=== PATIENT | female | born 1945 | race Caucasian/White ===

== ENCOUNTER → 2018-03-06 14:20 | Outpatient (CLI) | payer MEDICARE, SELFPAY ==
[2018-03-06 16:02] LABS: Vitamin D,25 Hydroxy 20.9 ng/mL (29.95-100.01)
[2018-03-06 16:05] LABS: Anion Gap 6 (5-15); BUN 16 mg/dL (7-18); BUN/Creat Ratio 25.5 RATIO (10-20); Calcium,Total 9.2 mg/dL (8.5-10.1); Chloride 105 mmol/L (98-107); Cholesterol 243 mg/dL (200); Creatinine, Serum 0.63 mg/dL (0.55-1.02); EST Glomerular Filtration Rate 100 mL/min (>60); Est Glom Filt Rate - Afr Amer 120 mL/min (>60); Glucose 90 mg/dL (74-106); High Density Lipoprotein 58 mg/dL; Potassium 4.4 mmol/L (3.5-5.1); Sodium Level 141 mmol/L (136-145); Thyroid Stim Hormone (TSH) 0.84 uIU/mL (0.358-3.74); Triglycerides 87 mg/dL; Very Low Density Lipoprotein 17 mg/dL (5-40)
== END ==
PROVIDERS: Family Provider Family Medicine; PCP Family Medicine; Referring Provider Family Medicine; Visit Provider Family Medicine
DX: Z13.220 Encounter for screening for lipoid disorders (principal); Z13.1 Encounter for screening for diabetes mellitus; Z13.29 Encounter for screening for other suspected endocrine disorder; Z13.21 Encounter for screening for nutritional disorder
CPT/HCPCS: 36415; 80048; 80061; 82306; 84443

== ENCOUNTER → 2018-05-08 10:35 | Outpatient (CLI) | payer MEDICARE, SELFPAY ==
--- NOTE | 2018-05-08 10:40 | BD_ITS ---
STUDY: DUAL ENERGY X-RAY ABSORPTIOMETRY / DXA REASON FOR EXAM: Female, 73 years old. The patient is postmenopausal. Loss of height. TECHNIQUE: Bone Mineral Density (BMD) measurements of lumbar spine and bilateral hips were obtained. COMPARISON: Comparison is made with prior study dated June 27, 2011. FINDINGS: Lumbar Spine (L1-L4): g/cm2 (0.961) / T-score (-1.7) / Z-score (-0.1) Findings are suggestive of osteopenia with a moderate fracture risk. Left Femur Total: g/cm2 (0.873) / T-score (-1.1) / Z-score (0.5) Left Femoral Neck: g/cm2 (0.754) / T-score (-2.0) / Z-score (-0.3) Right Femur Total: g/cm2 (0.854) / T-score (-1.2) / Z-score (0.3) Right Femoral Neck: g/cm2 (0.737) / T-score (-2.2) / Z-score (-0.4) The T-Scores on the most recent prior examination were: Lumbar Spine (L1-L4): There has been worsening of bone density since the previous examination. Left Femur Total: which represents a worsening of 0.3%. Right Femur Total: which represents a worsening of 4.5%. BD/Dexa Bone Density Study IMPRESSION: The patient is considered osteopenic as outlined below according to World [place] Organization (WHO) criteria with a moderate fracture risk. There has been worsening of bone density since the previous examination. Reference Information: The T-score is the number of standard deviations above or below the standard which is normal for young adults at their peak bone mineral density. The World Health Organization (WHO) interprets the T-scores as follows: Above -1 Normal bone density Between -1 and -2.5 Osteopenia Equal to / or below -2.5 Osteoporosis As a practical clinical guideline, osteopenia may be graded as follows: Mild -1 through -1.5 Moderate -1.6 through -2.0 Severe -2.1 through -2.4 The Z-score is the number of standard deviations above or below age-matched controls. A Z-score of less than -1.5 would be considered abnormal. References: 1. NIH Osteoporosis and Related Bone Diseases http://www.osteo.org 2. International Society for Clinical Densitometry http://www.iscd.org 3. National Osteoporosis Foundation http://www.nof.org Electronically Signed: Delvis Lara MD at 10:41 EST , Service support ,
--- NOTE | 2018-05-08 10:40 | BI_ITS ---
MAMMOGRAPHY - BILATERAL SCREENING REASON FOR EXAM: Female, 73 years old. Routine annual screening examination. PERTINENT HISTORY: Non-contributory. Remote right excisional breast biopsy. TECHNIQUE: Digital bilateral breast maty (3D mammographic acquisition) in the CC and MLO projections. 2-D mediolateral oblique (MLO) and craniocaudad (CC) views of both breasts were obtained. CAD: Full Field Digital Mammography with Computer Added Detection was performed. COMPARISON: Comparison is made with prior study dated December 26, 2012. FINDINGS: Breast Composition: There are scattered areas of fibroglandular density. There are no dominant masses or suspicious calcifications. Stable small bilateral axillary lymph nodes. No other significant abnormalities are identified. There has been no significant change since the prior study. BI/SCREENING MAMM (CAD), BILAT IMPRESSION: Stable bilateral screening mammogram. Yearly follow-up mammogram recommended. (A) ASSESSMENT CATEGORY: BIRADS Category 2: Benign. A letter regarding these results will be sent to the patient by the facility within 30 days. Approximately 10% of breast cancers are not detected by mammography. A normal mammogram should not delay biopsy of a clinically suspicious abnormality. [id number] Electronically Signed: Delvis Lara MD at 14:00 EST , Service support ,
== END ==
PROVIDERS: Family Provider Family Medicine; PCP Family Medicine; Referring Provider Family Medicine; Visit Provider Family Medicine
DX: Z12.31 Encounter for screening mammogram for malignant neoplasm of breast (principal); Z78.0 Asymptomatic menopausal state
CPT/HCPCS: 77063; 77067; 77080

== ENCOUNTER → 2019-09-03 | Outpatient (CLI) | payer MEDICARE, SELFPAY | END | disposition home or self-care (01) | PROVIDERS: PCP Family Medicine; Referring Provider Family Medicine; Visit Provider Family Medicine | DX: L03.90 Cellulitis, unspecified (principal) | CPT/HCPCS: 87070; 87106; 87186; 87205 ==

== ENCOUNTER 2019-12-01 06:51 | Day surgery (SDC) | payer MEDICARE, SELFPAY ==
[2019-12-01] VITALS (8 sets, daily range): BP systolic 131–165; BP diastolic 89–118; PULSE 68–76; RESP 16; TEMP 36.8–37.1; O2SAT 97–98; BMI 27.7
[2019-12-01] MEDS: Lactated Ringers 1,000 ML 100 ML IV (07:42)
--- NOTE | 2019-12-01 07:47 | H&P.OPEN ---
History of Present Illness Date of Admission: 12/01/19 The patient is a 74 year old F here for screening colonoscopy. Her last colonoscopy was about 10 years ago it may have been more. It was normal. She is not having any blood in her stool. She says occasionally she gets episodes where she has abdominal cramping and vomiting. She will see me in the office to discuss this at a later date. She has no family history of colon cancer that she knows of. Past Medical/Surgical History - Planned Operation Planned Operative Procedure/s: COLONOSCOPY Date of Operative Procedure: 12/01/19 Permit Signed: Yes S.O.S: No Is This Patient Having a Total Joint: No - Previous Hospitalizations/Surgeries HX Hospitalizations: No HX of Surgeries: TUBAL. BREAST LUMPECTOMY. LUMP OFF OF LEG. TOOTH EXTRACTION Any Problems With Anesthesia: No You/Your Family Experience Fever (Hyperthermia) With Anes: No Cholinesterase deficiency: No - Cardiovascular Hx Chest Pain within Last 2 months: No Hx of Irregular Heartbeat and/or Afib: No Hx Heart Attack: No Hx Congestive Heart Failure: No Hx Rheumatic Fever: No Hx Hypertension: Yes - ON MED Hx Internal Defibrillator: No Hx Pacemaker: No Hx Cardiac Catheterization: No Hx Cardiac Surgery/Stents/Etc.: No Hx Stress Test: No HX Edema: Yes - LOWER EXTREM. Hx Pain in Legs when Walking/Leg Cramps: No - Respiratory Chronic Cough: No HX of Shortness of Breath: No Hoarseness: No Hx Chronic Obstructive Pulmonary Disease (COPD): No Hx Asthma: No Hx Emphysema: No Hx Sleep Apnea: Yes CPAP: Yes - [id number] HAS SINCE GOTTEN RID OF BIPAP: No Hx Oxygen Use at Home: No Hx Respiratory Tract Infection/Cold (presently): No Result (for STOP score): Positive Hx Smoking: No Smoking Status: Never smoker - Gastrointestinal Hx Gastroesophageal Reflux: No Hx Gastrointestinal Disorders: No Hx Gastrointestinal Bleed: No Hx Ulcer: No Hx Hiatal Hernia: No Difficulty Chewing/Swallowing: No Recent Onset of Swallowing Problems: No Special diet followed at home: No Hx Unplanned Weight Loss of 20#: No HX Unplanned Weight Gain of 20#: No - Neurological Hx Seizures: No HX Syncope/Blackout Spells/Unconsciousness: No Hx CVA/Stroke: No Hx Transient Ischemic Attacks (TIA): No Hx Multiple Sclerosis: No Hx Parkinson's Disease: No Hx Head/Neck Injury: No Hx Headaches: No Hx Back Injury/Pain: Yes Recent Onset of Speech Difficulty: No Restless Legs: No Does patient have nerve stimulator: No - Blood Disorder Hx Leukemia: No Bleeding Tendencies: No Hx Deep Vein Thrombosis: No Hx High Cholesterol: Yes Blood Transmitted Disease: No Hx Hepatitis: No Hx Cirrhosis: No Hx Anemia: No Hx Blood Disorders: No - Reproduction : No Is Patient Lactating: No Hx Hysterectomy: No Hx Tubal Ligation: Yes Are You Post Menopause: Yes - Genitourinary Hx Renal Disease: No - Musculoskeletal Hx Arthritis: Yes Hx Rheumatoid Arthritis: No Hx Gout: No Recent Onset of an Orthopedic Problem: No - Endocrine Hx Diabetes: No Thyroid Disease: No Hx Steroid Therapy: No - Psycho/Social Hx Substance Use: No Hx Alcohol Use: No Hx Anxiety: No Hx Depression: No Mental Illness: No Hx Dementia: No - Miscellaneous Hx Cancer: No Recent Exposure to Contagious Disease: No Active MRSA: No Hx of C-Diff: No Any Loose Teeth: No Allergies Penicillins [PCN] Allergy (Verified 12/01/19 07:22) Swelling - Discharge Is Pt Admitted From a Jail, or a Mcfp: No Who Could Help: FAMILY After D/C, Where Do you Plan to Go: Return Home - From the PAT History Number of Risk Factors: 1 - Physical Exam Vitals/I&O's: Vital Signs Temp Pulse Resp BP Pulse Ox 98.8 F 76 16 165/100 H 98 12/01/19 07:26 12/01/19 07:26 12/01/19 07:26 12/01/19 07:26 12/01/19 07:26 Oxygen Delivery Method Room Air Weight: 137 lb 5.568 oz Body Mass Index (BMI) 27.7 General: Alert, Oriented x3 Neck: No JVD Lungs: Normal air movement Cardiovascular: Regular rate, Regular Rhythm Abdomen: Soft, Non Tender, Non-Distended Current Medications Lactated Ringer's () 1,000 mls @ 100 mls/hr IV .Q10H [place] Last Admin: 12/01/19 07:42 Dose: 100 mls/hr Documented by: Assessment/Plan 74-year-old female here for screening colonoscopy 1. I explained endoscopy in detail to the patient. I explained the risks including but not limited to stroke or heart attack with anesthesia, perforation of the GI tract, bleeding, infection. I explained that any of these could necessitate further emergency surgery. The patient understands and all questions were answered sufficiently. The patient wishes to proceed with procedure. 2. We discussed the current risks associated with COVID-19. While it is understood that there is a community spread of COVID-19, the risk of uriel COVID-19 [address] at [facility] ([facility]) is very low; however, the risk cannot be completely mitigated because of the community spread of the disease. We discussed in detail the risk of exposure to and/or potential harm posed by the COVID-19 virus with having a surgery/procedure at this time versus the risk of delaying the surgery/procedure. It is not possible to know either the risk of delaying the surgery or procedure or chance of getting an infection with perfect accuracy, but a joint decision was made to proceed at this time with the scheduled surgery/procedure as indicated on the consent form. Patient was notified that we will need to comply with any screening or testing [facility] wishes to perform or that surgery may be delayed for any positive results. Teo Ruiz MD Pager: [facility] [address] [place] [address], [address] [place] [address] Office: Surgery Risks - Colonoscopy Risks Include but are not Limited To: Risks include but are not limited to: Bleeding, perforation requiring further surgery, inability to complete colonoscopy requiring barium enema.
--- NOTE | 2019-12-01 08:10 | OP.COLON_ITS ---
Patient Name: Veronique Tobar Procedure Date: 12/01/2019 7:36 AM Date of : 1945 Age: 74 Procedure: Colonoscopy Indications: Screening for colorectal malignant neoplasm Providers: Teo Ruiz MD Referring MD: Danie Hitchcock Medicines: Monitored Anesthesia Care Patient Profile: This is a 74 year old female. Refer to note in patient chart for documentation of history and physical. Last Colonoscopy: 10 years ago. Complications: No immediate complications. Procedure: Pre-Anesthesia Assessment: - Prior to the procedure, a History and Physical was performed, and patient medications and allergies were reviewed. The patient's tolerance of previous anesthesia was also reviewed. The risks and benefits of the procedure and the sedation options and risks were discussed with the patient. All questions were answered, and informed consent was obtained. Prior Anticoagulants: The patient has taken no previous anticoagulant or antiplatelet agents. After reviewing the risks and benefits, the patient was deemed in satisfactory condition to undergo the procedure. After I obtained informed consent, the scope was passed under direct vision. Throughout the procedure, the patient's blood pressure, pulse, and oxygen saturations were monitored continuously. The colonoscope was introduced through the anus and advanced to the cecum, identified by appendiceal orifice and ileocecal valve. The colonoscopy was performed without difficulty. The patient tolerated the procedure well. The quality of the bowel preparation was good. Scope In: 7:55:03 AM Scope Withdrawal Time 0 hours 6 minutes 4 seconds Scope Out: 8:06:36 AM Total Procedure Duration Time 0 hours 11 minutes 33 seconds Findings: The entire examined colon appeared normal on direct and retroflexion views. Impression: - The entire examined colon is normal on direct and retroflexion views. - No specimens collected. Recommendation: - Discharge patient to home. - Resume previous diet. - Continue present medications. - Repeat colonoscopy is not recommended due to current age (66 years or older) for screening purposes. Procedure Code(s): --- Professional --- 56458, Colonoscopy, flexible; diagnostic, including collection of specimen(s) by brushing or washing, when performed (separate procedure) Diagnosis Code(s): --- Professional --- Z12.11, Encounter for screening for malignant neoplasm of colon CPT copyright 2017 [employer]. All rights reserved. The codes documented in this report are preliminary and upon dry chain offbearer review may be revised to meet current compliance requirements. Teo Ruiz MD 12/01/2019 8:09:57 AM This report has been signed electronically. Number of Addenda: 0 Note Initiated On: 12/01/2019 7:36 AM
--- NOTE | 2019-12-01 08:10 | OP.CCLET_ITS ---
12/01/2019 Danie Hitchcock [address] [place] [address] Re : Colonoscopy procedure for Veronique Tobar Dear Dr. Hitchcock This procedure was performed on Sunday, December 01, 2019. My impressions and recommendations are as follows: Impressions : - The entire examined colon is normal on direct and retroflexion views. - No specimens collected. Recommendations : - Discharge patient to home. - Resume previous diet. - Continue present medications. - Repeat colonoscopy is not recommended due to current age (66 years or older) for screening purposes. My findings are described in the full procedure note, which is enclosed. If I can be of further assistance, please feel free to contact me at Doctor phone number(s): , Work: . Sincerely, Teo Ruiz MD 12/01/2019 8:09:57 AM This report has been signed electronically.
== END 2019-12-01 09:04 | disposition home or self-care (01) ==
LOC: EN 06:53 → AC 06:55
PROVIDERS: Anesthesiology; PCP Family Medicine; Referring Provider Family Medicine; Visit Provider Surgery
PROC: 0DJD8ZZ Inspection of Lower Intestinal Tract, Via Natural or Artificial Opening Endoscopic (ICD-10-PCS; CPT 45378; principal; 2019-12-01 07:55)
DX: Z12.11 Encounter for screening for malignant neoplasm of colon (principal); I10 Essential (primary) hypertension; E78.5 Hyperlipidemia, unspecified; M81.0 Age-related osteoporosis without current pathological fracture; Z79.899 Other long term (current) drug therapy; Z11.59 Encounter for screening for other viral diseases
CPT/HCPCS: G0121; 36415; 80053; 80061; 82306; 84443; 87635; 94799; J7120; U0003

== ENCOUNTER → 2019-12-01 12:25 | Outpatient (CLI) | payer MEDICARE, SELFPAY ==
[2019-12-01 07:26] VITALS: BMI 27.7
[2019-12-01 16:06] LABS: ALB/GLOB Ratio 1.2 RATIO (0.9-2.4); AST(SGOT) 24 U/L (15-37); Alanine Aminotransfer ALT/SGPT 32 U/L (13-56); Albumin, Serum 3.7 g/dL (3.2-5.0); Alkaline Phosphatase 113 U/L (45-117); Anion Gap 6 (5-15); BUN 8 mg/dL (7-18); BUN/Creat Ratio 11.8 RATIO (10-20); Calcium,Total 8.9 mg/dL (8.5-10.1); Chloride 110 mmol/L (98-107); Cholesterol 163 mg/dL (200); Creatinine, Serum 0.68 mg/dL (0.55-1.02); EST Glomerular Filtration Rate 91 mL/min (>60); Est Glom Filt Rate - Afr Amer 110 mL/min (>60); Globulin 3.1 g/dL (2.2-4.2); Glucose 86 mg/dL (74-106); High Density Lipoprotein 49 mg/dL; Potassium 3.6 mmol/L (3.5-5.1); Protein, Total 6.8 g/dL (6.4-8.2); Sodium Level 142 mmol/L (136-145); Thyroid Stim Hormone (TSH) 1.21 uIU/mL (0.358-3.74); Triglycerides 108 mg/dL; Very Low Density Lipoprotein 22 mg/dL (5-40)
[2019-12-01 16:10] LABS: Vitamin D,25 Hydroxy 31.6 ng/mL
== END ==
PROVIDERS: PCP Family Medicine; Referring Provider Family Medicine; Visit Provider Family Medicine
DX: I10 Essential (primary) hypertension (principal)
CPT/HCPCS: 36415; 80053; 80061; 82306; 84443

== ENCOUNTER 2020-03-21 12:08 | Observation (INO) | payer MEDICARE, SELFPAY ==
[2019-12-01 07:26] VITALS: BMI 27.7
[2020-03-21] VITALS (11 sets, daily range): BP systolic 118–181; BP diastolic 72–97; PULSE 77–97; RESP 16–21; TEMP 35.9–37.5; O2SAT 96–99; BMI 28.3; BMI 27.1
--- NOTE | 2020-03-21 12:58 | EKG12_ITS ---
Test Reason : CP Blood Pressure : / mmHG Vent. Rate : 076 BPM Atrial Rate : 076 BPM P-R Int : 184 ms QRS Dur : 074 ms QT Int : 392 ms P-R-T Axes : 063 -20 036 degrees QTc Int : 441 ms Normal sinus rhythm Inferior infarct , age undetermined , cannot be excluded Abnormal ECG Confirmed by NICOLE KHOURY, AUGUSTO ([id number]), editorial director ANNIE RANDOLPH ([id number]) on 03/23/2020 10:44:46 AM Referred By: BB/CAROLINA Confirmed By:AUGUSTO RIVERA MD
--- NOTE | 2020-03-21 13:00 | ED.VIS.CHEST ---
History of Present Illness Chief Complaint: Chest Other Informant: Patient Onset: Yesterday Activity at onset: Rest Timing: Continuous Quality: Aching Location: Substernal - middle, radiating into anterior bilat neck Current Severity: Mild Maximum Severity: Mild, Moderate Worsened By: Breathing - a little, when I breathe deeply. Not Worsened By: Movement of Arm, Movement of Torso, Coughing Relieved By: Nothing Associated Symptoms: Negative for: Nausea, Vomiting, Diaphoresis, Dyspnea, Cough, Fever, Lightheadedness, Acid Reflux, Palpitations Narrative: Patient states she was not feeling well last night and had some very mild discomfort in her chest that is worse today. Continuous. Now it is starting to radiate into her throat/anterior neck. She denies any change in smell or taste. No recent cough, fevers, myalgias. She states she ran out of her blood pressure medicine 1 week ago, and has not gotten a refill from her doctor yet. She denies any known history of heart disease. She states while at work earlier with the symptoms she was really feeling awful, but now not quite as bad, just with the mild chest and neck discomfort. No recent leg pain or swelling. Patient presents during the national coronavirus emergency declaration/pandemic. She had contact with her granddaughter who had COVID-19, but she has already quarantined more than 14 days and developed no symptoms. She denies traveling out of the immediate area recently. No history of DVT or PE. CVD Risk Factors: Hypertension. Negative for: Diabetes, Hypercholesterolemia, Family History 1' </=55, Smoking PE Risk Factors: Negative for: Recent Travel/Surgery, Recenet Immobilization, Prior DVT or PE, Cancer, OCP + Smoking + >/=35 - Past Medical History (1) Hypertension Status: Chronic Past Medical History - Allergies and Home Meds Allergies/Adverse Reactions: Allergies Penicillins [PCN] Allergy (Verified 12/01/19 07:22) Swelling Primary Care Physician: Danie Hitcchock MD [Primary Care Provider] - Smoking Status: Never smoker Review of Systems General: Reports: Malaise. Denies: Chills, Fever, Sweats Eyes: Denies: Visual changes - bilaterally, Diplopia ENT: Denies: Rhinorrhea, Sore throat Cardiovascular: Reports: Chest pain. Denies: Palpitations Respiratory: Denies: Dyspnea, Cough, Dyspnea on exertion Gastrointestinal: Denies: Abdominal pain, Nausea, Vomiting, Diarrhea, Melena, Hematochezia Genitourinary: Denies: Dysuria, Hematuria, Frequency Musculoskeletal: Reports: Neck pain. Denies: Myalgias, Back pain, Swelling, Extremity Pain Skin: Denies: Rash, Wounds Neurological: Denies: Headache, Weakness, Numbness Physical Exam Vital Signs/Narrative: Vital Signs Temp Pulse Resp BP Pulse Ox 03/21/20 12:33 77 17 181/90 H 99 03/21/20 12:10 96.6 F L 80 16 176/96 H 97 Inital Vital Signs reviewed: Yes General: Well nourished, Well developed, Obese, No Acute Distress Head: Normocephalic, Atraumatic Eyes: Perrl, EOMI ENT: Moist mucous membranes, No rhinorrhea Neck: Supple, Nontender Cardiovascular: Regular rate, Regular rhythm, No murmurs Respiratory: No distress, CTA bilaterally, Chest nontender Abdomen: Soft, Nontender, Nondistended, Normal bowel sounds Back: Nontender, Normal Inspection. Negative for: CVA tenderness Extremities: Nontender, No edema. Negative for: Calf Tenderness Skin: Normal color, No rash, No Trauma Neurological: Alert, Oriented x3, Cranial nerves II-XII grossly intact, Normal Strength, Normal Sensation Psychological: Normal affect, Normal Mood Diagnostic/Tx/Re-eval Chest X-Ray - ED: 1 View, Read by ED Physician, No Acute Disease, Chronic Changes Impressions Chest X-Ray 03/21/20 13:34 IMPRESSION: Elevation of the right hemidiaphragm with mild increased markings at the lung bases suggestive of linear atelectasis and/or scarring. Electronically Signed: Delvis Lara, at 14:06 EST , Service support , 03/21/20 13:34 Chest 1 View (Portable) [RAD] Stat Laboratory Results 03/21/20 03/21/20 12:35 12:35 WBC 11.8 H RBC 4.69 Hgb 14.5 Hct 43.4 MCV 92.5 MCH 30.9 MCHC 33.4 RDW Std Deviation 44.3 H RDW Coeff of Lisa 13.3 Plt Count 214 MPV 11.0 Immature Gran % (Auto) 0.400 Neut % (Auto) 81.7 H Lymph % (Auto) 9.9 L [place] % (Auto) 6.9 Eos % (Auto) 0.7 Baso % (Auto) 0.4 Absolute Neuts (auto) 9.6 H Absolute Lymphs (auto) 1.17 Nucleated RBC % 0 Sodium 141 Potassium 3.8 Chloride 109 H Carbon Dioxide 31.0 Anion Gap 1 L BUN 14 Creatinine 0.70 Estim Creat Clear Calc 35.99 Est GFR (MDRD) Af Amer 106 Est GFR (MDRD) Non-Af 88 BUN/Creatinine Ratio 20.1 H Glucose 85 Calcium 8.9 Troponin I < 0.015 - Rhythm Strip Rhythm Strip: Sinus Rhythm Rate: 76 Ectopy: None - EKG Initial EKG Interpretation: Sinus Rhythm, No Acute Injury Pattern, - - Inferior Q waves. Borderline leftward axis. Prior: No Prior Treatment: Aspirin, NTG SL, GI Cocktail Repeat Eval: Improved but still symptomatic - Medical Decision Making Patient has an abnormal but nonspecific EKG with no prior. No acute injury pattern present and troponin negative. Symptoms are concerning, she states she has never had a stress test before. No obvious cause for symptoms, which she has never had before. Given all this I recommend inpatient observation for further work-up and possibly provocative stress testing, she is amenable to that plan, discussed with hospitalist for inpatient observation. ED Disposition - Plan for ED Patient: Disposition: Acute Care Hospital [facility] Diagnosis: Chest pain, unspecified Referrals: Danie Hitchcock MD [Primary Care Provider] -
[2020-03-21 13:12] LABS: Absolute Lymphocyte Count 1.17 X10^3/uL (0.83-4.51); Absolute Neutrophil Count 9.6 X10^3/uL (2.0-7.7); Basophil# 0.05 X10^3/uL; Basophil% 0.4 % (0-1); Eosinophil# 0.08 X10^3/uL; Eosinophils% 0.7 % (0-5); Hematocrit 43.4 % (37-47); Hemoglobin 14.5 g/dL (12.0-15.0); Lymphocyte # 1.17 X10^3/ul (4.0); Lymphocyte % 9.9 % (19-41); Mean Corp Hgb Conc 33.4 g/dL (32-36); Mean Corpuscular Hgb 30.9 pg (27.0-32.0); Mean Corpuscular Volume 92.5 fL (81-99); Monocyte# 0.81 X10^3/uL; Monocyte% 6.9 % (0-10); NRBC Flagged by Analyzer 0 % (0-5); Neutrophil # 9.61 X10^3/uL (2.7-7.7); Neutrophil % 81.7 % (47-70); Platelet Count 214 K/mm3 (150-450); RBC Distribution Width CV 13.3 % (11.6-14.6); RBC Distribution Width SD 44.3 fl (35.1-43.9); Red Blood Count 4.69 M/mm3 (4.2-5.4); White Blood Count 11.8 K/mm3 (4.4-11.0)
[2020-03-21 13:26] LABS: Anion Gap 1 (5-15); BUN 14 mg/dL (7-18); BUN/Creat Ratio 20.1 RATIO (10-20); Calcium,Total 8.9 mg/dL (8.5-10.1); Chloride 109 mmol/L (98-107); EST Glomerular Filtration Rate 88 mL/min (>60); Est Glom Filt Rate - Afr Amer 106 mL/min (>60); Estimated Creatinine Clearance 35.99 ml/min; Glucose 85 mg/dL (74-106); Potassium 3.8 mmol/L (3.5-5.1); Sodium Level 141 mmol/L (136-145)
--- NOTE | 2020-03-21 13:34 | RAD_ITS ---
STUDY: X-RAY CHEST REASON FOR EXAM: Female, 75 years old. PRESSURE IN NECK AND TIGHTNESS IN CHEST. OUT OF BP MED X1 WEEK TECHNIQUE: Single AP portable view of the chest. COMPARISON: None. FINDINGS: EKG electrodes are seen. There is elevation of the right hemidiaphragm. Mild increased linear markings at the lung bases suggestive of linear atelectasis and/or scarring. There is no demonstrated pleural abnormality. Normal size heart. Normal mediastinum and janis. Normal visualized pulmonary arteries. There is atherosclerotic tortuosity of the aortic arch and descending thoracic aorta. There are diffuse degenerative changes of the visualized thoracic spine. Normal visualized ribs, clavicles, and shoulders. There is no demonstrated abnormality of the visualized soft tissue structures of the upper abdomen. RAD/Chest 1 View (Portable) IMPRESSION: Elevation of the right hemidiaphragm with mild increased markings at the lung bases suggestive of linear atelectasis and/or scarring. Electronically Signed: Delvis Lara, at 14:06 EST , Service support ,
[2020-03-21] MEDS: Mag Hydrox/Al Hydrox/Simeth 30 ML UDC PO (13:42)
[2020-03-21] MEDS: Nitroglycerin SL (ED/IMG/CATH) 0.4 MG TABLET SUBLINGUAL (15:22)
--- NOTE | 2020-03-21 16:44 | PCM.HP.STD ---
Problem List (1) Hypertension Status: Chronic (2) Chest pain, unspecified Status: Acute History of Present Illness Date of Admission: 03/21/20 Chief Complaint: chest pain The patient is a 75 year old F presents with midsternal chest pain. Chest pain began last evening. Went back to sleep and then was still present today. Was just not feeling well as well during this time and presented to the emergency room. In the emergency room, her work-up was unremarkable. Patient did receive aspirin. Feeling better at this time. States that her chest pain is worse when she takes in a deep breath. Has never had chest pain like this before. 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 [] Past Medical History Past Medical History (Chronic Problems): Chronic Problems (Last Updated 03/21/20 @ 16:[address] Hugo Gay DO) Hypertension (Chronic) Medical History: Medical History (Last Updated 03/21/20 @ 16:[address] Hugo Gay DO) Hyperlipidemia E78.5 HTN (hypertension) I10 Allergies Penicillins [PCN] Allergy (Verified 12/01/19 07:22) Swelling Home Medications: Ambulatory Orders Medication Instructions Recorded Hydrochlorothiazide [Hctz] 25 mg PO DAILY 11/18/19 Amlodipine [Norvasc] 5 mg PO DAILY 03/21/20 Atorvastatin Calcium [Lipitor] 10 mg PO QHS 03/21/20 Smoking Status: Never smoker - *Family History Maternal History Items: No pertinent history Review of Systems Constitutional: Denies: Anorexia, Fever, Night Sweats Eyes: Denies: Blurred vision, Double vision HEENT: Denies: Head Aches, Sinus Congestion, Sinus Drainage Cardiovascular: Reports: Chest Pain. Denies: Chest Tightness Respiratory: Denies: Cough, Shortness of breath at rest, Sputum production Gastrointestinal: Denies: Abdominal Pain, Nausea, Vomiting Genitourinary: Denies: Dysuria Musculoskeletal: Denies: Joint Pain, Joint Tenderness Skin: Denies: Rash, Wounds Neurological: Denies: Numbness, Tingling, Focal weakness Hematologic/ Lymphatic: Denies: Easy Bruising, Easy Bleeding, Hx of blood clot Comment: All review of systems were negative except as mentioned above in the history of present illness and the other review of systems. VTE Information - Inpt Only VTE Present on Admission: No VTE Mechan Device Prophylaxis: None VTE Pharm Prophylaxis ordered?: No Reason prophylaxis not ordered:: Treatment Not Indicated Patient Problems: Active and Suspected Problems (Last Updated 03/21/20 @ 16:[address] Hugo Gay, DO) Chest pain, unspecified (Acute) - Physical Exam Vitals/I&O's: Vital Signs Temp Pulse Resp BP Pulse Ox 35.9 C L 88 21 H 152/91 H 96 03/21/20 12:10 03/21/20 15:22 03/21/20 14:28 03/21/20 15:22 03/21/20 14:28 Oxygen Delivery Method Room Air Weight: 65.771 kg Body Mass Index (BMI) 28.3 General: Alert, Cooperative, No apparent distress HEENT: Atraumatic, Normocephalic Oral: Moist Mucosa, No Gingival or Mucosal Lesions/ Ulcerations Neck: No Nodes, Thyroid Normal Size and Texture Lungs: Clear to auscultation, Normal air movement, No rhonchi, No wheeze, No rales Cardiovascular: Regular rate, Regular Rhythm, Normal S1, Normal S2, No murmurs Abdomen: Bowel Sounds Present, Soft, Non Tender, Non-Distended, No Hepato-splenomegaly Extremities: No edema, No Calf Tenderness Skin: No rashes, No breakdown Musculoskeletal: No Tenderness to Palpation of Joints or Extremities, No Muscle Wasting Psych/Mental Status: Normal Affect, Appropriate Laboratory Results 03/21/20 12:35: WBC 11.8 H, RBC 4.69, Hgb 14.5, Hct 43.4, MCV 92.5, MCH 30.9, MCHC 33.4, RDW Std Deviation 44.3 H, RDW Coeff of Lisa 13.3, Plt Count 214, MPV 11.0, Immature Gran % (Auto) 0.400, Neut % (Auto) 81.7 H, Lymph % (Auto) 9.9 L, [place] % (Auto) 6.9, Eos % (Auto) 0.7, Baso % (Auto) 0.4, Absolute Neuts (auto) 9.6 H, Absolute Lymphs (auto) 1.17, Nucleated RBC % 0 03/21/20 12:35: Sodium 141, Potassium 3.8, Chloride 109 H, Carbon Dioxide 31.0, Anion Gap 1 L, BUN 14, Creatinine 0.70, Estim Creat Clear Calc 35.99, Est GFR (MDRD) Af Amer 106, Est GFR (MDRD) Non-Af 88, BUN/Creatinine Ratio 20.1 H, Glucose 85, Calcium 8.9, Troponin I < 0.015 Assessment/Plan All Active Problems (Last Updated 03/21/20 @ 16:[address] Hugo Gay, DO) Chest pain, unspecified (Acute) 1. Chest pain: KASEY score of 2. Low suspicion for this being cardiac but will perform a stress test to rule this out. Patient stated that she would be able to do a treadmill. We will perform a treadmill stress echocardiogram on the . Patient received aspirin in the emergency room and will continue with aspirin on the floor. Cycle troponins as well as lipid profile. 2. Hypertension: Stable. Patient is on amlodipine as well as HCTZ. Patient stated that she recently ran out of her medications about a week ago. 3. VTE prophylaxis: Low risk as she is observation status and not indicated. 4. Advanced care planning: Discussed with the patient. Patient wishes to be full CODE STATUS. OBSV E&M: 19405 Initial observation care L2
[2020-03-21] MEDS: Aspirin 81 MG TAB.CHEW 324 MG PO (16:50)
--- NOTE | 2020-03-21 17:26 | EKG12_ITS ---
Test Reason : Blood Pressure : / mmHG Vent. Rate : 084 BPM Atrial Rate : 084 BPM P-R Int : 172 ms QRS Dur : 076 ms QT Int : 356 ms P-R-T Axes : 059 -17 036 degrees QTc Int : 420 ms Normal sinus rhythm Inferior infarct , age undetermined Abnormal ECG No previous ECGs available Confirmed by ANDRES KHOURY, TOMAS ([id number]), videotape editor ANNIE RANDOLPH ([id number]) on 03/31/2020 12:01:33 PM Referred By: EVAN Confirmed By:OTILIA CAMPOS MD
--- NOTE | 2020-03-21 19:01 | PCS.PANDOC ---
PANDEMIC DOCUMENTATION INITIATED: Date: 03/21 Time: [id number]
[2020-03-21] MEDS: Atorvastatin Calcium 10 MG Tablet PO (20:33)
[2020-03-22] VITALS (7 sets, daily range): BP systolic 126–157; BP diastolic 83–101; PULSE 78–95; RESP 16–18; TEMP 36.9–37.3; O2SAT 93–97
--- NOTE | 2020-03-22 05:55 | EKG12_ITS ---
Test Reason : AM Blood Pressure : / mmHG Vent. Rate : 090 BPM Atrial Rate : 090 BPM P-R Int : 174 ms QRS Dur : 076 ms QT Int : 364 ms P-R-T Axes : 063 -12 044 degrees QTc Int : 445 ms Normal sinus rhythm Inferior infarct , age undetermined Abnormal ECG When compared with ECG of 21-MAR-2020 17:55, MANUAL COMPARISON REQUIRED, DATA IS UNCONFIRMED Confirmed by ANDRES KHOURY, TOMAS ([id number]), editor dictionary ANNIE RANDOLPH ([id number]) on 03/31/2020 12:00:41 PM Referred By: ESAU Confirmed By:OTILIA CAMPOS MD
--- NOTE | 2020-03-22 05:55 | STEWCON_ITS ---
Reason For Study: CHEST PAIN Stress Results Protocol: Ron Protocol WITH DEFINITY Maximum Predicted HR: 147 bpm Target HR: 125 bpm % Maximum Predicted HR: 101 % DurationHeart Rate Stage (mm:ss) (bpm) BP Comment BASELINE 94 142/1044 CC DEFINITY FOR TEST STAGE 1 3:00 115 144/104SOB NOTED STAGE 2 2:36 148 200/110 RECOVERY 107 154/104 Stress Duration: 5:36 mm:ss Maximum Stress HR: 148 bpm Baseline Echocardiogram Findings Stress Echo Wall motion Data Resting WM Intermediate WM Stress WM Resting Wall Motion Wall Motion Stress All segments Normal. All segments Hyperkinetic. Ejection Fraction 60 %. Ejection Fraction 70 %. Stress Results Heart rate response: Appropriate Blood pressure response: Resting hypertension-exaggerated response Arrhythmias: None Functional capacity: Average Stopped secondary to: Dyspnea. EKG Data Baseline ECG: Normal sinus rhythm. Stress ECG: Somatic/motion artifact with no obvious ECG changes. Symptoms with Stress No complaint of chest discomfort during exercise or recovery. Interpretation Summary 1. Contrast injection performed 2. Negative (adequate) stress echocardiogram Ordering Physician: Hugo Gay Performed By: Leigh Lim, HIRAM, RVT
[2020-03-22 06:33] LABS: Cholesterol 199 mg/dL (200); High Density Lipoprotein 53 mg/dL; Triglycerides 62 mg/dL; Very Low Density Lipoprotein 12 mg/dL (5-40)
[2020-03-22] MEDS: Aspirin E.C. 81 MG Tablet PO (06:50)
[2020-03-22] MEDS: hydroCHLOROthiazide 25 MG Tablet PO (09:00)
[2020-03-22] MEDS: amLODIPine 5 MG Tablet PO (09:00)
--- NOTE | 2020-03-22 10:40 | CT_ITS ---
STUDY: CTA CHEST REASON FOR EXAM: Female, 75 years old. CHEST PAIN RADIATION DOSAGE (If Supplied By Facility): CTDIvol = ( 9.06 ) mGy, DLP = ( 339.18 ) mGycm TECHNIQUE: The examination was performed with the intravenous administration of IV 100mL Isovue-370. Post-processing of the angiographic images was performed, with multiplanar reformation and 3D reconstruction. Individualized dose optimization techniques were used for this CT. COMPARISON: Comparison is made with prior chest radiograph dated 03/21/2020. FINDINGS: Normal enhancement of the main pulmonary artery and right and left pulmonary arteries. Normal enhancement of the bilateral peripheral pulmonary arteries. There is no demonstrated pulmonary embolism. There is scattered atherosclerotic calcification of the aortic arch with tortuosity. There is no demonstrated aortic dissection. Normal heart and pericardium. Normal mediastinum. Normal hilar regions. Normal visualized trachea and bronchi. The lungs are well expanded. Minimal increased linear markings in the medial aspect of the right middle lobe. This may represent either atelectasis and/or early infiltrate. Normal pleura. Normal chest wall structures. There are degenerative changes of thoracic spine. There is a 1 cm well-defined hypodensity in the midportion of the left lobe of the liver suggestive of a small cyst. CT/CTA Chest W/WO Contrast IMPRESSION: Minimal increased linear markings in the right middle lobe suggestive of atelectasis and/or early infiltrate. Electronically Signed: Delvis Lara, at 11:23 EST , Service support ,
--- NOTE | 2020-03-22 15:52 | PCM.DC ---
- Discharge Diagnoses Current Active Problems: Current Active and Chronic Problems (Last Updated 03/21/20 @ 16:[address] Hugo Gay, DO) Hypertension (Chronic) Chest pain, unspecified (Acute) You will use the following diet at home:: No restrictions, Regular Your food should be the consistency of: Regular Your liquids should be the consistency of: Regular/Thin Discharge Activity: Return to Normal Activity, - - back to work on 03/26 Allergies/Adverse Reactions: Allergies Penicillins [PCN] Allergy (Verified 12/01/19 07:22) Swelling Medications to take at Discharge Hydrochlorothiazide [Hctz] 25 mg PO DAILY 11/18/19 Amlodipine [Norvasc] 5 mg PO DAILY 03/21/20 Atorvastatin Calcium [Lipitor] 10 mg PO QHS 03/21/20 Levofloxacin [Levaquin] 750 mg PO DAILY #5 tab 03/22/20 The following prescriptions were given: Levofloxacin [Levaquin] 750 mg PO DAILY #5 tab Transmission Status: Pending to [facility] Primary Care Physician: Danie Hitchcock MD [Primary Care Provider] - Please follow up with your Primary Care Physician in: 1-2 weeks Test Results: Test results from this visit will be discussed in further detail at your follow-up appointment, if applicable.
--- NOTE | 2020-03-22 16:55 | DS.PCM_ITS ---
Discharge Date and Diagnosis - Problem List Patient Problems: Active and Suspected Problems (Last Updated 03/21/20 @ 16:[address] Hugo Gay DO) Chest pain, unspecified (Acute) Date of Admission: 03/21/20 Date of Discharge: 03/22/20 - Primary Discharge Diagnosis Acute Problems: Active Problems (Last Updated 03/21/20 @ 16:[address] Hugo Gay DO) Chest pain, unspecified (Acute) - Secondary Discharge Diagnosis Chronic Problems: Chronic Problems (Last Updated 03/21/20 @ 16:[address] Hugo Gay DO) Hypertension (Chronic) Hospital Course and Treatment Imaging Results: Reason For Study: CHEST PAIN Stress Results Protocol: Ron Protocol WITH DEFINITY Maximum Predicted HR: 147 bpm Target HR: 125 bpm % Maximum Predicted HR: 101 % DurationHeart Rate Stage (mm:ss) (bpm) BP Comment BASELINE 94 142/1044 CC DEFINITY FOR TEST STAGE 1 3:00 115 144/104SOB NOTED STAGE 2 2:36 148 200/110 RECOVERY 107 154/104 Stress Duration: 5:36 mm:ss Maximum Stress HR: 148 bpm Baseline Echocardiogram Findings Stress Echo Wall motion Data Resting WM Intermediate WM Stress WM Resting Wall Motion Wall Motion Stress All segments Normal. All segments Hyperkinetic. Ejection Fraction 60 %. Ejection Fraction 70 %. Stress Results Heart rate response: Appropriate Blood pressure response: Resting hypertension-exaggerated response Arrhythmias: None Functional capacity: Average Stopped secondary to: Dyspnea. EKG Data Baseline ECG: Normal sinus rhythm. Stress ECG: Somatic/motion artifact with no obvious ECG changes. Symptoms with Stress No complaint of chest discomfort during exercise or recovery. Interpretation Summary 1. Contrast injection performed 2. Negative (adequate) stress echocardiogram TUDY: CTA CHEST REASON FOR EXAM: Female, 75 years old. CHEST PAIN RADIATION DOSAGE (If Supplied By Facility): CTDIvol = ( 9.06 ) mGy, DLP = ( 339.18 ) mGycm TECHNIQUE: The examination was performed with the intravenous administration of IV 100mL Isovue-370. Post-processing of the angiographic images was performed, with multiplanar reformation and 3D reconstruction. Individualized dose optimization techniques were used for this CT. COMPARISON: Comparison is made with prior chest radiograph dated 03/21/2020. FINDINGS: Normal enhancement of the main pulmonary artery and right and left pulmonary arteries. Normal enhancement of the bilateral peripheral pulmonary arteries. There is no demonstrated pulmonary embolism. There is scattered atherosclerotic calcification of the aortic arch with tortuosity. There is no demonstrated aortic dissection. Normal heart and pericardium. Normal mediastinum. Normal hilar regions. Normal visualized trachea and bronchi. The lungs are well expanded. Minimal increased linear markings in the medial aspect of the right middle lobe. This may represent either atelectasis and/or early infiltrate. Normal pleura. Normal chest wall structures. There are degenerative changes of thoracic spine. There is a 1 cm well-defined hypodensity in the midportion of the left lobe of the liver suggestive of a small cyst. CT/CTA Chest W/WO Contrast IMPRESSION: Minimal increased linear markings in the right middle lobe suggestive of atelectasis and/or early infiltrate. NONE Summary of Care Provided: Ms Tobar is a 75 year old F who presented to the ED on 03/21 with CP. The chest pain began the evening prior to presentation. She went back to sleep and then it was still present when she came in. In the emergency room, her work-up was unremarkable. Patient did receive aspirin.She stated that her chest pain is worse when she takes in a deep breath and she stated that she coughs when she takes a deep breath and has been congested. Her troponin was cycled and was negative. Her Stress Echo was negative. COVID-19 was negative and a CTA of her chest was negative for PE but did show minimal increased linear markings in the right middle lobe suggestive of atelectasis and/or early infiltrate. This in conjunction with and elevated white count and her cough was suggest of developing PNA and she was placed on Levaquin at d/c for 5 days. She was on RA with stable vitals throughout her stay. She was discharged home in stable condition with the script for the Levaquin and scripts for her home BP meds x 1 month as she had run out. She is to f/u with her PCP in 1-2 weeks. Discharge Time > 30 min Patient Problems: Active and Suspected Problems (Last Updated 03/21/20 @ 16:[address] Hugo Gay, DO) Chest pain, unspecified (Acute) - Physical Exam Vitals/I&O's: Vital Signs Temp Pulse Resp BP Pulse Ox 98.4 F 80 16 135/83 H 93 03/22/20 15:57 03/22/20 15:57 03/22/20 15:57 03/22/20 15:57 03/22/20 15:57 Oxygen Delivery Method Room Air Weight: 63.1 kg Body Mass Index (BMI) 27.1 Intake and Output for Last 24 Hours 03/20/20 03/21/20 03/22/20 23:59 23:59 23:59 Intake Total 300 / 300 240 / 240 Balance 300 / 300 240 / 240 General: Alert, Oriented x3, Cooperative, No apparent distress, Well developed, Well nourished, - - older WF sitting up in bed on phone, gets mildly dyspnic with extensive conversation HEENT: Atraumatic, Normocephalic Oral: Moist Mucosa, No Gingival or Mucosal Lesions/ Ulcerations Neck: Supple, Trachea Midline Lungs: Clear to auscultation, Normal air movement, No rhonchi, No wheeze, No rales Cardiovascular: Regular rate, Regular Rhythm, Normal S1, Normal S2, No murmurs, No Ectopic Activity, No rub noted, No Gallop Abdomen: Bowel Sounds Present, Soft, Non Tender, Non-Distended, No Hepato- splenomegaly Extremities: No clubbing, No cyanosis, No edema, Capillary Refill Less than 3 Seconds, Peripheral Pulses Normal Skin: No rashes, No breakdown Musculoskeletal: No Tenderness to Palpation of Joints or Extremities, No Muscle Wasting, Arthritic Changes Lymphatic: No Cervical, Supraclavicular, or Inguinal Adenopathy Neurological: Cranial nerves II-XII grossly intact, Neuro grossly intact Psych/Mental Status: Normal Affect, Appropriate Laboratory Results 03/21/20 18:04: Troponin I < 0.015 03/21/20 20:45: Troponin I < 0.015 03/22/20 05:40: Triglycerides 62, Cholesterol 199, LDL Cholesterol 134 H, VLDL Cholesterol 12, HDL Cholesterol 53 03/22/20 10:50: COVID-19 (NORMA) Not Detected Current Medications Acetaminophen (Acetaminophen 325 Mg Tablet) 650 mg PO Q6H PRN PRN PRN Reason: Pain Score 1-10/Temp > 100.7 F Amlodipine Besylate (Amlodipine 5 Mg Tablet) 5 mg PO DAILY [facility] Last Admin: 03/22/20 09:00 Dose: 5 mg Documented by: Aspirin (Aspirin E.C. 81 Mg Tablet) 81 mg PO DAILY@0800 [facility] Last Admin: 03/22/20 06:50 Dose: 81 mg Documented by: Atorvastatin Calcium (Atorvastatin Calcium 10 Mg Tablet) 10 mg PO QHS [facility] Last Admin: 03/21/20 20:33 Dose: 10 mg Documented by: Hydrochlorothiazide (Hydrochlorothiazide 25 Mg Tablet) 25 mg PO DAILY [facility] Last Admin: 03/22/20 09:00 Dose: 25 mg Documented by: Nitroglycerin (Nitroglycerin (Inpatient Use) 0.4 Mg Tab.Subl) 0.4 mg SUBLINGUAL Q5M PRN PRN Reason: CARDIAC/CHEST PAIN Ondansetron HCl (Ondansetron 4 Mg/2 Ml Vial) 4 mg IV Q8H PRN PRN PRN Reason: NAUSEA/VOMITING Oxycodone HCl (Oxycodone 5 Mg Tablet) 5 mg PO Q4H PRN PRN PRN Reason: Pain Score 4-5 Oxycodone HCl (Oxycodone 5 Mg Tablet) 10 mg PO Q4H PRN PRN PRN Reason: Pain Score 6-10 Sodium Chloride (0.9% Saline Lock 10 Ml Syringe) 10 - 40 ml IV UD PRN PRN Reason: SALINE FLUSH Discharge Activity: Return to Normal Activity, - - back to work on 03/26 Home Medications: Medications to take at Discharge Hydrochlorothiazide [Hctz] 25 mg PO DAILY 08/19/20 Amlodipine [Norvasc] 5 mg PO DAILY 03/21/20 Atorvastatin Calcium [Lipitor] 10 mg PO QHS 03/21/20 Amlodipine Besylate [Norvasc] 5 mg PO DAILY #30 tab 03/22/20 Atorvastatin Calcium [Lipitor] 10 mg PO QHS #30 tab 03/22/20 Hydrochlorothiazide [Hctz] 25 mg PO DAILY #30 tab 03/22/20 Levofloxacin [Levaquin] 750 mg PO DAILY #5 tab 03/22/20 Following Prescriptions Were Given to Patient: Hydrochlorothiazide [Hctz] 25 mg PO DAILY #30 tab Transmission Status: Received by [facility] Levofloxacin [Levaquin] 750 mg PO DAILY #5 tab Transmission Status: Received by [facility] Atorvastatin Calcium [Lipitor] 10 mg PO QHS #30 tab Transmission Status: Received by [facility] Amlodipine Besylate [Norvasc] 5 mg PO DAILY #30 tab Transmission Status: Received by [facility] Primary Care Physician: Danie Hitchcock MD [Primary Care Provider] - Please follow up with your Primary Care Physician in: 1-2 weeks Medical Necessity - Tobacco Use Smoking Status: Never smoker Tobacco Use: Non-smoker Meaningful Use Info Meaningful Use Diagnoses (Choose all that apply): None applicable Inpatient E&M: [id number] [facility]
== END 2020-03-22 15:53 | disposition home or self-care (01) ==
LOC: ED 16:22 → PCU 16:51
PROVIDERS: Emergency Provider Emergency Medicine; PCP Family Medicine; Visit Provider Internal Medicine
DX: R07.89 Other chest pain (principal); I10 Essential (primary) hypertension; Z23 Encounter for immunization; Z79.899 Other long term (current) drug therapy; R07.1 Chest pain on breathing; E78.5 Hyperlipidemia, unspecified
CPT/HCPCS: 36415; 71045; 71275; 80048; 80061; 84484; 85025; 87635; 93005; 93017; 93350; 99218; 99285; G0008; Q9957; Q9967; 90686; A4216; C8928; G0378; U0002

== ENCOUNTER → 2020-03-29 11:29 | Outpatient (CLI) | payer MEDICARE, SELFPAY ==
[2020-03-21 17:48] VITALS: BMI 27.1
[2020-03-29 15:03] LABS: Hematocrit 48.1 % (37-47); Hemoglobin 15.1 g/dL (12.0-15.0); Mean Corp Hgb Conc 31.4 g/dL (32-36); Mean Corpuscular Hgb 28.7 pg (27.0-32.0); Mean Corpuscular Volume 91.3 fL (81-99); Platelet Count 303 K/mm3 (150-450); RBC Distribution Width SD 43.6 fl (35.1-43.9); Red Blood Count 5.27 M/mm3 (4.2-5.4); White Blood Count 6.4 K/mm3 (4.4-11.0)
[2020-03-29 15:27] LABS: Anion Gap 5 (5-15); BUN 21 mg/dL (7-18); BUN/Creat Ratio 23.6 RATIO (10-20); Calcium,Total 9.2 mg/dL (8.5-10.1); Chloride 102 mmol/L (98-107); Creatinine, Serum 0.89 mg/dL (0.55-1.02); EST Glomerular Filtration Rate 66 mL/min (>60); Est Glom Filt Rate - Afr Amer 80 mL/min (>60); Glucose 101 mg/dL (74-106); Potassium 3.6 mmol/L (3.5-5.1); Sodium Level 139 mmol/L (136-145)
== END ==
LOC: MFPLAB 11:30
PROVIDERS: PCP Family Medicine; Visit Provider Family Medicine
DX: R42 Dizziness and giddiness (principal)
CPT/HCPCS: 36415; 80048; 84443; 85027

== ENCOUNTER → 2020-04-26 11:19 | Outpatient (CLI) | payer MEDICARE, SELFPAY ==
[2020-03-21 17:48] VITALS: BMI 27.1
--- NOTE | 2020-04-26 11:23 | RAD_ITS ---
STUDY: X-RAY - CERVICAL SPINE REASON FOR EXAM: Female, 75 years old. Shoulder pain and left side neck pain. States she feels crunching in neck/head area . TECHNIQUE: 7 view(s) of the cervical spine were obtained. COMPARISON: None FINDINGS: Normal anterior atlantoaxial articulation. Normal odontoid process. Normal cervical lordosis. There is multi-level endplate spondylosis. There is multi-level degenerative disc disease with multilevel disc space narrowing. There is mild neural foraminal narrowing on the left at C5-C6 and C6-7. There is no evidence of acute fracture or loss of vertebral axial height. There is maintenance of normal alignment. The soft tissue structures are unremarkable. RAD/Cerv Spine 4 or 5 Views IMPRESSION: Degenerative changes of the cervical spine. Electronically Signed: Cortez Parr DO at 21:55 EST Tel [phone], Service support ,
== END ==
PROVIDERS: PCP Family Medicine; Referring Provider Family Medicine; Visit Provider Family Medicine
DX: R20.2 Paresthesia of skin (principal)
CPT/HCPCS: 72050

== ENCOUNTER → 2020-10-26 15:36 | Outpatient (CLI) | payer MEDICARE, SELFPAY ==
[2020-10-26 18:15] LABS: Vitamin D,25 Hydroxy 22.9 ng/mL
[2020-10-26 18:18] LABS: ALB/GLOB Ratio 1.3 RATIO (0.9-2.4); AST(SGOT) 27 U/L (15-37); Alanine Aminotransfer ALT/SGPT 44 U/L (13-56); Albumin, Serum 3.8 g/dL (3.2-5.0); Alkaline Phosphatase 103 U/L (45-117); Anion Gap 5 (5-15); BUN 14 mg/dL (7-18); BUN/Creat Ratio 23.5 RATIO (10-20); Calcium,Total 9.1 mg/dL (8.5-10.1); Chloride 106 mmol/L (98-107); Cholesterol 136 mg/dL (200); EST Glomerular Filtration Rate 105 mL/min (>60); Est Glom Filt Rate - Afr Amer 127 mL/min (>60); Globulin 2.9 g/dL (2.2-4.2); Glucose 89 mg/dL (74-106); High Density Lipoprotein 52 mg/dL; Potassium 3.5 mmol/L (3.5-5.1); Protein, Total 6.7 g/dL (6.4-8.2); Sodium Level 140 mmol/L (136-145); Thyroid Stim Hormone (TSH) 0.95 uIU/mL (0.358-3.74); Triglycerides 161 mg/dL; Very Low Density Lipoprotein 32 mg/dL (5-40)
[2020-10-27 09:00] LABS: PTHIN 68.6 pg/mL (18.4-80.1)
== END ==
LOC: MFPLAB 15:37
PROVIDERS: PCP Family Medicine; Referring Provider Family Medicine; Visit Provider Family Medicine
DX: E55.9 Vitamin D deficiency, unspecified (principal); E78.5 Hyperlipidemia, unspecified; M81.0 Age-related osteoporosis without current pathological fracture
CPT/HCPCS: 36415; 80053; 80061; 82306; 82330; 83970; 84443

== ENCOUNTER → 2020-11-22 12:38 | Outpatient (CLI) | payer MEDICARE, SELFPAY ==
--- NOTE | 2020-11-22 12:40 | BD_ITS ---
STUDY: DUAL ENERGY X-RAY ABSORPTIOMETRY / DXA REASON FOR EXAM: Female, 75 years old. Z780 -- . The patient is postmenopausal. TECHNIQUE: Bone Mineral Density (BMD) measurements of lumbar spine and bilateral hips were obtained. COMPARISON: Comparison is made with prior study dated 05/08/2018. FINDINGS: Lumbar Spine (L1-L4): g/cm2 (0.822) / T-score (-2.0) / Z-score (0.3) Findings are suggestive of osteopenia with a moderate fracture risk. Left Femur Total: g/cm2 (0.784) / T-score (-1.3) / Z-score (0.4) Left Femoral Neck: g/cm2 (0.572) / T-score (-2.5) / Z-score (-0.5) Right Femur Total: g/cm2 (0.780) / T-score (-1.3) / Z-score (0.4) Right Femoral Neck: g/cm2 (0.558) / T-score (-2.6) / Z-score (-0.6) The T-Scores on the most recent prior examination were: Lumbar Spine (L1-L4): There has been worsening of bone density since the previous examination. Left Femur Total: which represents a worsening of 3.2%. Right Femur Total: which represents a worsening of 1.6%. BD/Dexa Bone Density Study IMPRESSION: The patient is considered osteoporotic as outlined below according to World [place] Organization (WHO) criteria with a high fracture risk. There has been worsening of bone density since the previous examination. Reference Information: The T-score is the number of standard deviations above or below the standard which is normal for young adults at their peak bone mineral density. The World Health Organization (WHO) interprets the T-scores as follows: Above -1 Normal bone density Between -1 and -2.5 Osteopenia Equal to / or below -2.5 Osteoporosis As a practical clinical guideline, osteopenia may be graded as follows: Mild -1 through -1.5 Moderate -1.6 through -2.0 Severe -2.1 through -2.4 The Z-score is the number of standard deviations above or below age-matched controls. A Z-score of less than -1.5 would be considered abnormal. References: 1. NIH Osteoporosis and Related Bone Diseases www osteo.org 2. International Society for Clinical Densitometry www iscd.org 3. National Osteoporosis Foundation www nof.org Electronically Signed: Delvis Lara MD at 13:56 EDT , Service support ,
--- NOTE | 2020-11-22 12:40 | BI_ITS ---
MAMMOGRAPHY - BILATERAL SCREENING REASON FOR EXAM: Female, 75 years old. Routine annual screening examination. PERTINENT HISTORY: Non-contributory. Remote right excisional breast biopsy. TECHNIQUE: Digital bilateral breast maty (3D mammographic acquisition) in the CC and MLO projections. 2-D mediolateral oblique (MLO) and craniocaudad (CC) views of both breasts were obtained. CAD: Full Field Digital Mammography with Computer Added Detection was performed. COMPARISON: Comparison is made with prior examination of 05/08/2018 and 12/26/2012. FINDINGS: Breast Composition: There are scattered areas of fibroglandular density. There are no dominant masses or suspicious calcifications. Stable benign appearing bilateral axillary. No other significant abnormalities are identified. There has been no significant change since the prior study. BI/SCREENING MAMM (CAD), BILAT IMPRESSION: Stable bilateral screening mammogram. Yearly follow-up mammogram recommended. (A) ASSESSMENT CATEGORY: BIRADS Category 2: Benign. A letter regarding these results will be sent to the patient by the facility within 30 days. Approximately 10% of breast cancers are not detected by mammography. A normal mammogram should not delay biopsy of a clinically suspicious abnormality. [id number] Electronically Signed: Delvis Lara MD at 13:47 EDT , Service support ,
== END ==
PROVIDERS: PCP Family Medicine; Visit Provider Family Medicine
DX: M81.0 Age-related osteoporosis without current pathological fracture (principal); Z78.0 Asymptomatic menopausal state; Z12.31 Encounter for screening mammogram for malignant neoplasm of breast
CPT/HCPCS: 77067; 77080

== ENCOUNTER → 2020-12-15 | Outpatient (CLI) | payer MEDICARE, SELFPAY | END | disposition home or self-care (01) | LOC: LABSPEC 14:23 | PROVIDERS: PCP Family Medicine; Referring Provider Family Medicine; Visit Provider Family Medicine | DX: Z20.822 Contact with and (suspected) exposure to COVID-19 (principal) | CPT/HCPCS: 87635; U0005; U0003 ==